=== PATIENT | female | born 1990 ===

== ENCOUNTER 2020-07-08 09:45 | Inpatient (IN) | payer OTHER ==
[~2020-07-08] VITALS: Ht 170.2 cm; Wt 78.5 kg
[2020-07-11] MEDS ORDERED: IRON325 MG PO (07:03)
== END 2020-07-13 13:20 | disposition home or self-care (01) | DRG 807 ==
LOC: LDR 07-11 06:14 → OB/GYN 07-11 10:50 → SURH 07-15 12:00
PROVIDERS: ADMIT Specialist; ATTEND Specialist
PROC: 10E0XZZ Delivery of Products of Conception, External Approach (ICD-10-PCS; principal; 2020-07-11)
PROC: 0KQM0ZZ Repair Perineum Muscle, Open Approach (ICD-10-PCS; 2020-07-11)
PROC: 10907ZC Drainage of Amniotic Fluid, Therapeutic from Products of Conception, Via Natural or Artificial Opening (ICD-10-PCS; 2020-07-11)
PROC: 3E033VJ Introduction of Other Hormone into Peripheral Vein, Percutaneous Approach (ICD-10-PCS; 2020-07-11)
PROC: 4A1HXFZ Monitoring of Products of Conception, Cardiac Rhythm, External Approach (ICD-10-PCS; 2020-07-11)
DX: O62.0 Primary inadequate contractions (principal); O70.1 Second degree perineal laceration during delivery; O99.824 Streptococcus B carrier state complicating childbirth; Z37.0 Single live birth; Z3A.39 39 weeks gestation of pregnancy; Z20.822 Contact with and (suspected) exposure to COVID-19

== ENCOUNTER 2023-10-24 10:00 | Day surgery (SDC) | payer OTHER ==
[2023-10-20 15:29] VITALS: BP 117/83
[~2023-10-24] VITALS: Ht 170.2 cm; Wt 75.7 kg
[~2023-10-24 10:00] MED LIST: IRON325 MG PO
[2023-10-24] MEDS ORDERED: POVIDONE-IODINE 118 ML BOTT TOP ONE (19:56)
[2023-10-24] MEDS ORDERED: HEMOSTATIC MATRIX 1 KIT KIT TOP ONE ×2 (21:59→22:15)
[2023-10-24] MEDS ORDERED: SURGIFLO APPLICATOR 1 EACH APPL TOP ONE (22:00)
[2023-10-24] MEDS ORDERED: SUGAMMADEX SODIUM 200 MG/2 ML VIAL IV ONE (22:21)
[2023-10-24] MEDS ORDERED: MORPHINE SULFATE 4 MG/ML VIAL IV PRN (23:45)
[2023-10-24] MEDS ORDERED: PROMETHAZINE HCL 50 MG/ML AMPUL IM ONE (23:45)
== END 2023-10-25 00:20 | disposition home or self-care (01) ==
LOC: CIR.AMB 10:00 → U 10:00 → CIR.AMB 12:15
PROVIDERS: ATTEND Obstetrics & Gynecology Obstetrics
DX: Z30.2 Encounter for sterilization (principal)